=== PATIENT | male | born 2000 | race Two or more races ===

== ENCOUNTER 2023-12-12 03:06 | Emergency (ER) | payer BC | END 2023-12-12 04:30 | disposition home or self-care (01) | LOC: FB.ED 03:06 | DX: S05.01XA Injury of conjunctiva and corneal abrasion without foreign body, right eye, initial encounter (principal); F17.210 Nicotine dependence, cigarettes, uncomplicated; W22.8XXA Striking against or struck by other objects, initial encounter | CPT/HCPCS: 99283 ==